=== PATIENT | male | born 1950 | race Caucasian/White ===

== ENCOUNTER → 2019-12-18 | Outpatient (CLI) | payer MEDICARE ==
--- NOTE | 2019-12-18 09:36 | XR ---
EXAMINATION TYPE: XR KUB DATE OF EXAM: 12/18/2019 Comparison: None Clinical History: 69-year-old male N20.1 RLQ pain Findings: Surgical clips left paramedian mid abdomen and left upper quadrant. Multiple pelvic phlebolith. Calcifications in the right mid abdomen measuring 9 mm and 5 mm Nonobstructive bowel gas pattern. Mild degenerative change at the hips. Impression: A 9 mm and 5 mm calcification right mid abdomen likely nonobstructive right renal calculi. Phlebolith s in the pelvis.
== END | disposition home or self-care (01) ==
LOC: RADXRMAIN 09:12
PROVIDERS: ATTEND Urology
DX: I87.8 Other specified disorders of veins (principal); K31.89 Other diseases of stomach and duodenum
CPT/HCPCS: 74018

== ENCOUNTER → 2021-07-26 | Outpatient (CLI) | payer MEDICARE ==
--- NOTE | 2021-07-26 08:24 | XR ---
EXAMINATION TYPE: XR KUB DATE OF EXAM: 07/26/2021 8:15 AM CLINICAL HISTORY: Kidney stones TECHNIQUE: Two supine KUB images of the abdomen are obtained. COMPARISON: Abdominal x-ray December 18, 2019 FINDINGS: Slightly larger approximate 8 mm upper pole right renal calculus . Suspect new 10 mm calcul us distal right ureter over the lower sacrum. Scattered tiny pelvic phleboliths inferior to this rede monstrated bilaterally. Metallic hardware from right hip arthroplasty is now present only partially imaged. Numerous surgical clips left midabdomen redemonstrated. Spurring lower lumbar levels. Overall nonobstructive bowel gas pattern. IMPRESSION: As above.
== END | disposition home or self-care (01) ==
LOC: RADXRMAIN 07:57
PROVIDERS: ATTEND Urology
DX: N20.0 Calculus of kidney (principal)
CPT/HCPCS: 74018

== ENCOUNTER → 2021-08-10 | Outpatient (CLI) | payer MEDICARE ==
--- NOTE | 2021-08-10 09:10 | CT ---
EXAMINATION TYPE: CT abdomen pelvis wo con DATE OF EXAM: 08/10/2021 COMPARISON: No previous CT scan is available for comparison HISTORY: Left kidney stone CT DLP: 1038.60 mGycm Automated exposure control for dose reduction was used. TECHNIQUE: Helical acquisition of images was performed from the lung bases through the pelvis. No IV contrast administration. FINDINGS: A right distal ureteric obstructing stone is seen measuring 9 x 9 mm and located about 15 mm proximal to the right ureterovesical junction. It causes moderate right-sided hydroureter and hydronephrosis with right perinephric and right perinephric fat stranding which could be due to obstruction however associated infection cannot be excluded. Please correlate with urinalysis results. 6 mm nonobstructin g stone is seen at the upper pole of the right kidney. No other definite radiodense renal, ureteric or urinary bladder calculi. No left-sided hydroureter or hydronephrosis. Bilateral renal cysts without gross suspicious feature, incompletely characterized b y this nonenhanced CT scan. The urinary bladder is not completely distended. Slightly bulky prostate with tiny prostatic concretion, please correlate with PSA level. Unremarkable seminal vesicles. Unremarkable unenhanced CT appearance of the liver, gallbladder and adrenals. 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 Suspected 2.6 cm residual splenic tissue. Mild fatty infiltration of the pancreatic head. Unremarkable nondistende d stomach, duodenum and small bowel. Unremarkable colonic anastomosis seen in the left side of the pe lvis. Scattered uncomplicated colonic diverticulosis. Prominent subcentimeter bilateral inguinal lymph nodes. No suspicious abdominal or pelvic lymphadenop athy. No sizable ascites. Large left fat-containing inguinal hernia with smaller right-sided inguinal hernia. Suspected cardiomegaly. Loss of volume of the left lung base with cardiomediastinal shift to the left side. Right total hip arthroplasty. Osteopenia. Degenerative changes of the lower thoracic and lumbar spine. Scattered vertebral body hemangiomas. IMPRESSION: Right distal ureteric obstructing stone measuring up to 9 mm, causing right-sided hydroureter and hyd ronephrosis. Associated infection can't be excluded, please correlate with urinalysis results. 6 mm nonobstructing stone at the upper pole of the right kidney. Further urological consultation can be considered. Other incidental findings as detailed above.
== END | disposition home or self-care (01) ==
LOC: RADCTMAIN 08:29
PROVIDERS: ATTEND Urology
DX: N20.1 Calculus of ureter (principal)
CPT/HCPCS: 74176

== ENCOUNTER → 2021-08-24 | Outpatient (CLI) | payer MEDICARE ==
[2021-08-24 17:58] LABS: Appearance,Urine Clear (Clear); Bilirubin,Urine Negative (Negative); Blood,Urine Negative (Negative); Color,Urine Yellow (Yellow); Ketones,Urine Trace mg/dL (Negative); Leukocyte Esterase,Urine Negative (Negative); Nitrite,Urine Negative (Negative); Protein,Urine Negative (Negative); Specific Gravity,Urine 1.024 (1.001-1.030)
[2021-08-24 18:53] LABS: Basophils # (A) 0.08 X 10*3/uL (0.00-0.10); Eosinophils # (A) 0.35 X 10*3/uL (0.04-0.35); Eosinophils % (A) 4.4 %; HCT 47.7 % (39.6-50.0); Immature Grans, Automated 0.1 %; Lymphocytes # (A) 1.67 X 10*3/uL (0.90-5.00); Lymphocytes % (A) 21.1 %; MCH 29.4 pg (27.0-32.0); MCHC 31.4 g/dL (32.0-37.0); MCV 93.3 fL (80.0-97.0); Mean Platelet Volume 10.7 fL (9.5-12.2); Monocytes % (A) 10.1 %; NRBC Per 100 WBC 0 /100 WBCS (0.0-0.0); Neutrophils % (A) 63.3 %; Platelet Count 343 X 10*3/uL (140-440); RBC 5.11 X 10*6/uL (4.40-5.60); WBC 7.91 X 10*3/uL (4.50-10.00)
[2021-08-25 01:15] LABS: African American GFR (CKD) 103.4 (60.0-200.0); Albumin/Globulin Ratio 1.43 (1.60-3.17); BUN/Creat Ratio 19.13 Ratio (12.00-20.00); Blood Urea Nitrogen 15.3 mg/dL (9.0-27.0); Calcium 9.8 mg/dL (8.7-10.3); Globulin 2.8 g/dL (1.6-3.3); Non-African American GFR(CKD) 89.2 (60.0-200.0); Potassium 4.7 mmol/L (3.5-5.5); Total Bilirubin 0.9 mg/dL (0.30-1.20); Total Protein 6.8 g/dL (6.2-8.2)
== END | disposition home or self-care (01) ==
LOC: LABPAT 08:57
PROVIDERS: ATTEND Urology
DX: Z01.812 Encounter for preprocedural laboratory examination (principal); N20.1 Calculus of ureter
CPT/HCPCS: 80053; 81003; 85025

== ENCOUNTER 2021-08-31 06:59 | Day surgery (SDC) | payer MEDICARE ==
[2021-08-29 10:05] VITALS: BMI 34.0
--- NOTE | 2021-08-30 19:28 | P.GSHP ---
History of Present Illness H&P Date: 08/30/21 71 yomelani presented with gross hematuria. He had a history of stones. He ended up undergoig a ct scan which identified a 9mm distal right ureteral stone with obstrution. Because of the size of the stone and the hydronephrosis he comes for a right ureteroscopy with laser lithotripsy and possible stent. - Constitutional Constitutional: Denies chills, Denies fever - EENT Eyes: denies blurred vision, denies pain Ears, nose, mouth and throat: Denies headache, Denies sore throat - Cardiovascular Cardiovascular: Denies chest pain, Denies shortness of breath - Respiratory Respiratory: Denies cough, Denies 7 - Gastrointestinal Gastrointestinal: Denies abdominal pain, Denies diarrhea, Denies nausea, Denies vomiting - Genitourinary (Female) Genitourinary: Denies dysuria, Denies hematuria - Genitourinary (Male) Genitourinary: Denies dysuria, Denies hematuria - Musculoskeletal Musculoskeletal: Denies myalgias - Integumentary Integumentary: Denies pruritus, Denies rash - Neurological Neurological: Denies numbness, Denies weakness - Psychiatric Psychiatric: Denies anxiety, Denies depression - Endocrine Endocrine: Denies fatigue, Denies weight change Past Medical History Past Medical History: Cancer, Hyperlipidemia, Hypertension, Pulmonary Embolus (PE) Additional Past Medical History / Comment(s): HX LT LUNG CANCER, HODGKIN'S, PROSTATE CANCER. KIDNEY STONES. 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 DATE Smoking Status: Never smoker - Past Family History Father Family Medical History: Cancer Medications and Allergies Home Medications Medication Instructions Recorded Confirmed Type Clopidogrel [Plavix] 75 mg PO DAILY 08/29/21 08/29/21 History Elderberry Fruit and Flower [Black 1 each PO DAILY 08/29/21 08/29/21 History Elderberry 575 mg Cap] Ergocalciferol [Vitamin D2 (1250 1,250 mcg PO MO 08/29/21 08/29/21 History Mcg = 21615 Iu)] Metoprolol Succinate (ER) [Toprol 50 mg PO DAILY 08/29/21 08/29/21 History Xl] Rivaroxaban [Xarelto] 20 mg PO DAILY 08/29/21 08/29/21 History Rosuvastatin [Crestor] 20 mg PO HS 08/29/21 08/29/21 History Tamsulosin [Flomax] 0.4 mg PO HS 08/29/21 08/29/21 History amLODIPine [Norvasc] 5 mg PO DAILY 08/29/21 08/29/21 History Allergies Allergy/AdvReac Type Severity Reaction Status Date / Time No Known Allergies Allergy Verified 08/29/21 09:53 Surgical - Exam - General well developed, well nourished, no distress - Eyes PERRL - ENT no hearing loss - Neck trachea midline - Respiratory normal expansion, normal respiratory effort - Cardiovascular Rhythm: regular - Abdomen Abdomen: soft, non tender - Genitourinary normal penis with no external lesions, testicles present - Integumentary no rash, no growths - Neurologic normal coordination, normal sensation - Musculoskeletal normal gait, normal posture - Psychiatric oriented to time, oriented to person, oriented to place, speech is normal, memory intact Results - Imaging Abdominal x-ray: report reviewed, image reviewed CT scan - abdomen: report reviewed, image reviewed CT scan - pelvis: report reviewed, image reviewed Assessment and Plan Assessment: Impression: Large right ureteral stone with hydronephrosis. Plan: Right ureteroscopy with laser lithotripsy and possible stent.
[~2021-08-31 06:59] MED LIST: DEXAMETHASONE SOD PHOSPHATE 4 MG/ML 1 ML VIAL IV ONE; LACTATED RINGERS 1,000 ML IV SCH; LIDOCAINE 1% (10MG/ML) FOR IV START INTRADERMA PRN; ONDANSETRON 4 MG/2 ML VIAL IVP ONE
[2021-08-31] MEDS ORDERED: HYDROmorphone 0.5 MG/0.5 ML SYRINGE IVP PRN (07:00)
--- NOTE | 2021-08-31 07:45 | XR ---
EXAMINATION TYPE: XR KUB DATE OF EXAM: 08/31/2021 COMPARISON: 07/26/2021 INDICATION: Renal stone TECHNIQUE: Single view abdomen supine view FINDINGS: Nonspecific bowel gas is present through the small bowel loops in left midabdomen as well as colonic bowel gas. Fecal debris is in the ascending colon. Psoas margins are normal. 1.0 cm right renal stone is present. Previous distal ureteral stone has moved into the right hemipelv is IMPRESSION: 1. Movement of the distal right ureteral stone into the right hemipelvis. 2. Right renal stone
[2021-08-31] MEDS ORDERED: fentaNYL (PF) 50 MCG/ML 2 ML AMP ONE (09:00)
[2021-08-31] MEDS ORDERED: PROPOFOL 10 MG/ML 20 ML VIAL IV ONE (09:00)
[2021-08-31] MEDS ORDERED: LIDOCAINE 1% INJ 10MG/ML (20 ML MDV) ONE (09:00)
[2021-08-31] MEDS ORDERED: SUCCINYLCHOLINE CHLORIDE VIAL 200 MG/10 ML VIAL IV ONE (09:00)
[2021-08-31] MEDS ORDERED: PHENYLEPHRINE-0.9% NACL SYG 1,000 MCG/10 ML SYRINGE ONE (09:00)
[2021-08-31] MEDS ORDERED: MIDAZOLAM 2 MG/2 ML VIAL ONE (09:00)
[2021-08-31 10:22] VITALS: TEMP 96.8
--- NOTE | 2021-08-31 10:23 | P.OP ---
Date of Procedure: 08/31/21 Preoperative Diagnosis: Right ureteral stone Postoperative Diagnosis: Urethral stricture, right ureteral stone Procedure(s) Performed: Cystoscopy, dilate urethral stricture, right ureteroscopy laser lithotripsy, placement of 6 x 26 stent, placement of 18-Singaporean Rich Anesthesia: MOE Surgeon: Dax Torres Estimated Blood Loss (ml): 25 Pathology: other (Stone) Condition: stable Disposition: PACU Indications for Procedure: Patient has a 9 mm obstructing distal ureteral stone on the right he comes for ureteroscopy laser lithotripsy Description of Procedure: Patient brought to the operating suite given general anesthesia placed lithotomy position with sterile prep and drape cystoscopy with a 21-Singaporean sheath Foroblique lens identifies a bulbar stricture that requires a wire to intubate but is soft and is dilated easily with the scope. The prostate is 60 and obstructing. The bladder hinojosa trabeculated. The ureteral orifices identified. The right ureter is J-hook due to the obstructing prostate. I passed the wire with some difficulty up the right ureter but meet obstruction of the stone. Over the wires and passed the semirigid scope up to the stone. With the 275 laser probe the stone was broken up into tiny pieces. The larger pieces are basketed. I'm able to advance the scope proximal to the ureteral stone. There is no remaining significant fragments. There is a lot of edema over the stone had an obstructed. An 035 wires and passed through the ureteroscope. I removed the ureteroscope. i backloaded the wire onto the cystoscope. I then reintroduced the cystoscope into the bladder. Over the wires and passed a 6 x 26 double-J catheter that coils in the right renal pelvis and the bladder. Because of the stricture I'll leave the catheter for 48 hours. 18-Singaporean Rich catheters passed in the bladder with pink urine return. The patient tolerated procedure well be discharged home upon recovery and found the office in 48 hours for catheter removal.
--- NOTE | 2021-08-31 10:35 | FL ---
Fluoroscopy INDICATION: Pain FINDINGS: Fluoroscopy time: 33 seconds. Images obtained: 6. IMPRESSIONS: 1. Documentation of fluoroscopy.
[2021-08-31 11:25] VITALS: PULSE 68
[2021-08-31 12:34] VITALS: BP 157/86; RESP 20
== END 2021-08-31 12:25 | disposition home or self-care (01) ==
LOC: OR 06:59
PROVIDERS: ATTEND Urology
DX: N13.2 Hydronephrosis with renal and ureteral calculous obstruction (principal); N35.912 Unspecified bulbous urethral stricture, male; I25.10 Atherosclerotic heart disease of native coronary artery without angina pectoris; I10 Essential (primary) hypertension; E78.5 Hyperlipidemia, unspecified; M19.90 Unspecified osteoarthritis, unspecified site; Z86.711 Personal history of pulmonary embolism; Z85.118 Personal history of other malignant neoplasm of bronchus and lung; Z85.46 Personal history of malignant neoplasm of prostate; Z95.2 Presence of prosthetic heart valve; Z95.5 Presence of coronary angioplasty implant and graft; Z85.71 Personal history of Hodgkin lymphoma; Z90.2 Acquired absence of lung [part of]; Z90.49 Acquired absence of other specified parts of digestive tract; Z98.890 Other specified postprocedural states; Z90.89 Acquired absence of other organs; Z96.653 Presence of artificial knee joint, bilateral; Z96.641 Presence of right artificial hip joint; Z79.02 Long term (current) use of antithrombotics/antiplatelets; Z79.01 Long term (current) use of anticoagulants; Z79.899 Other long term (current) drug therapy
CPT/HCPCS: 82365; 74018; 52356; C2625; C1769; C1758; J2250; J0330; J1100; J0690; J2405; J2001; J3010; J2370; J2704

== ENCOUNTER → 2021-11-11 | Outpatient (CLI) | payer MEDICARE ==
[2021-11-11 13:49] LABS: African American GFR (CKD) >90 (>60 ml/min/1.73 sqM); Blood Urea Nitrogen 19 mg/dL (9-20); Non-African American GFR(CKD) >90 (>60 ml/min/1.73 sqM)
--- NOTE | 2021-11-11 14:30 | CT ---
EXAMINATION TYPE: CT chest w con DATE OF EXAM: 11/11/2021 COMPARISON: NONE HISTORY: Dyspnea. History of non-Hodgkin lymphoma and lung cancer. CT DLP: 471.20 mGycm. Automated Exposure Control for Dose Reduction was Utilized. TECHNIQUE: CT scan of the thorax is performed following with IV Contrast, patient injected with 70 m L of Isovue 300. FINDINGS: LUNGS: There is 2.6 x 1.7 cm focal nodule or nodular consolidation medial right upper lobe axial imag e 15. Some inferior extension with anterior bronchogram is present. There is some surrounding groundg lass opacity extending superiorly. There is left-sided volume loss with scarring and clips abutting t he mediastinum. There is mild left basilar pleural thickening and linear scarring. Small anterior lef t pleural fluid collection or thickening in the upper lung is seen. No pleural effusion or pneumothor ax seen bilaterally. MEDIASTINUM: There are no greater than 1 cm hilar or mediastinal lymph nodes. Left hilar surgical meli nges are present with linear sutures. Stent graft in the aortic root. No cardiomegaly. Small to tiny pericardial effusion. Dense calcification at the level of the mitral valve. Mild coronary artery grace cification. There is 1.3 cm lower right thyroid isthmus nodule axial image 1. Thyroid ultrasound foll ow-up advised if this is not known finding. OTHER: Small degree of bilateral gynecomastia. A few thin-walled cysts are scattered throughout both kidneys. Nonobstructing 5 mm calculus right kidney upper to midpole level coronal image 52. Surgical clips in the midabdomen are partially imaged. Small sized hiatal hernia. Slight scoliotic curvature. IMPRESSION: No suspicious adenopathy. Posttreatment changes to the left lung. There is medial right u pper lung 2.6 x 1.7 cm nodule or nodular consolidation. Correlation with old outside CT and/or PET/CT is advised to further evaluate. If this cannot be performed a PET/CT follow-up would be advised.
== END | disposition home or self-care (01) ==
LOC: RADCTMAIN 13:03
PROVIDERS: ATTEND Internal Medicine Critical Care Medicine
DX: R06.09 Other forms of dyspnea (principal)
CPT/HCPCS: 82565; 84520; 71260; 36415; Q9967

== ENCOUNTER 2021-11-16 10:59 | Day surgery (SDC) | payer MEDICARE ==
[2021-11-14 15:33] VITALS: BMI 33.7
[~2021-11-16 10:59] MED LIST changes: +ALBUTEROL NEB (CONC) 2.5 MG/0.5 ML INHALATION ONE; -DEXAMETHASONE SOD PHOSPHATE 4 MG/ML 1 ML VIAL IV ONE; +LIDOCAINE 2% (PF) 20 MG/ML 5 ML VIAL INHALATION ONE; +LIDOCAINE VISCOUS 300 MG/15 ML CUP MUCOUS MEM ONE; -ONDANSETRON 4 MG/2 ML VIAL IVP ONE
[2021-11-16 11:29] VITALS: RESP 18; TEMP 97.7
[2021-11-16] MEDS: LACTATED RINGERS 1,000 ML IV SCH ×2 (11:53→12:00)
[2021-11-16] MEDS ORDERED: GLYCOPYRROLATE 0.2 MG/ML 2 ML VIAL ONE (12:01)
[2021-11-16] MEDS ORDERED: MIDAZOLAM 2 MG/2 ML VIAL ONE (12:01)
[2021-11-16] MEDS ORDERED: PROPOFOL 10 MG/ML 20 ML VIAL IV ONE (12:01)
[2021-11-16] MEDS ORDERED: KETAMINE 10 MG/ML 20 ML VIAL ONE (12:01)
[2021-11-16] MEDS ORDERED: LIDOCAINE 2% INJ 20 MG/ML INTRATRACH ONE (12:10)
--- NOTE | 2021-11-16 12:45 | P.PCN ---
Date of Procedure: 11/16/21 Preoperative Diagnosis: Dyspnea, history of non-small cell lung cancer with a previous lobectomy Postoperative Diagnosis: Upper airway inspection revealing redundant adipose tissue and collapsibility highly suggestive of obstructive sleep apnea Tracheobronchomalacia Left lower lobectomy Procedure(s) Performed: Flexible bronchoscopy Anesthesia: [facility] Surgeon: Gabriel Boone Pathology: other Condition: stable Disposition: same day Operative Findings: This is a 72-year-old male patient who was referred to me for evaluation of ongoing shortness of breath. The patient's has undergone a previous left lower lobe resection 2018 for an underlying lung cancer. The surgery was done at [facility]. Subsequently, the patient was having surveillance CAT scans and the patient was found to have a right upper lobe opacity with some surrounding groundglass pulmonary changes. The most recent CAT scan of the chest that was done on 11/12/2019 showedThe patient was found to have a right upper lobe 2.6 x 1.7 cm nodule/no other consolidation with surrounding groundglass changes. There was volume loss on the left. There was a 1.2 cm thyroid isthmus nodule. An airway inspection was done as the patient was having nausea breathing and upper airway obstruction was suspected. This procedure was done under conscious sedation. Anesthetic agents was administered by anesthesia the bedside. The patient was given propofol. Immediately after achieving adequate sedation, the flexible bronchoscope was introduced through the right nostril was advanced to the operating room where. Examination of the posterior pharynx was done and the patient was found to have an enlarged uvula and redundant adipose tissue with dynamic collapse of ability of the pharyngeal and laryngeal causing dynamic anatomic obstruction. Epiglottis was identified. Vocal cords were slightly swollen. There had a no rmal function and mobility. The subglottic trachea was essentially within normal limits. There was no evidence of any subglottic stenosis. No evidence of any tracheostenosis. Nevertheless, as the bronchoscope was being advanced distally, the patient was found to have significant degree of tracheal bronchomalacia with collapsibility of airways with examination and coughing. Examination of the right lung was within normal limits. The visualized airways including the right upper lobe bronchus regular lobe bronchus and right lower lobe bronchus right mainstem bronchus and the various segments. Examination of the left showed a normal left main stem bronchus. Stump to the left lower lobe was normal. At the level of the left apical bronchus, there was some endobronchial irregularities. Initially I intended to biopsy these abnormalities. Nevertheless, I was unable to have a good visualization of the irregularity that the patient encounter some endobronchial mucosal bleeding causing haziness and poor visibility. I attended to the one endobronchial biopsies and this was in contact with some bleeding and I aborted the procedure at that point. Plan No evidence of any upper airway obstruction other than dynamic obstruction/tracheobronchomalacia Left lower lobectomy questionable endobronchial irregularities in the left upper lobe bronchus We'll proceed with an outpatient PET scan.
[2021-11-16 14:00] VITALS: BP 119/70; PULSE 75
== END 2021-11-16 13:58 | disposition home or self-care (01) ==
LOC: ORWHC2ENDO 10:59
PROVIDERS: ATTEND Internal Medicine Critical Care Medicine
DX: J40 Bronchitis, not specified as acute or chronic (principal); J98.09 Other diseases of bronchus, not elsewhere classified; Z85.118 Personal history of other malignant neoplasm of bronchus and lung; Z86.711 Personal history of pulmonary embolism; I10 Essential (primary) hypertension; E78.5 Hyperlipidemia, unspecified; Z85.46 Personal history of malignant neoplasm of prostate; Z79.02 Long term (current) use of antithrombotics/antiplatelets; Z79.01 Long term (current) use of anticoagulants; Z79.899 Other long term (current) drug therapy; Z95.2 Presence of prosthetic heart valve
CPT/HCPCS: 88305; 31625; 31624; J2001; J2250; J2704

== ENCOUNTER → 2023-03-21 | Outpatient (CLI) | payer MEDICARE ==
[2023-03-22 02:42] LABS: ALT 29 U/L (10-49); AST 19 U/L (14-35); Albumin 3.9 d/dL (3.8-4.9); Alkaline Phosphatase 98 U/L (41-126); BUN/Creat Ratio 24.86 Ratio (12.00-20.00); Blood Urea Nitrogen 17.4 mg/dL (9.0-27.0); Calcium 10.5 mg/dL (8.7-10.3); Chloride 100 mmol/L (96-109); Glucose 157 mg/dL (70-110); Magnesium 2.2 mg/dL (1.5-2.4); Potassium 4.6 mmol/L (3.5-5.5); Sodium 138 mmol/L (135-145); Total Bilirubin 0.8 mg/dL (0.3-1.2); Total Protein 6.9 d/dL (6.2-8.2)
== END | disposition home or self-care (01) ==
LOC: LABWHC1 14:42
PROVIDERS: ATTEND Internal Medicine
DX: Z85.118 Personal history of other malignant neoplasm of bronchus and lung (principal)
CPT/HCPCS: 36415; 80053; 83735

== ENCOUNTER → 2023-03-23 | Outpatient (CLI) | payer MEDICARE ==
--- NOTE | 2023-03-23 15:56 | MR ---
EXAMINATION TYPE: MR brain wo/w con DATE OF EXAM: 03/23/2023 COMPARISON: None HISTORY: Hx of lung cancer Dx 03-21-23 TECHNIQUE: Multiplanar, multisequence images of the brain and brainstem is performed without and with IV contras t, utilizing 10 mL intravenous Gadavist . FINDINGS: Diffusion weighted images demonstrate no evidence of a recent infarct or other diffusion ab normality. There is no extra-axial fluid collection. Few scattered foci of T2/FLAIR hyperintensity w ithin the periventricular and subcortical white matter bilaterally. The ventricular system and cister nal spaces are normal in size and appearance. The brain volume is age appropriate. Midline structures demonstrate normal morphology. The craniocervical junction appears within normal limits. Post contrast images demonstrate no abnormal enhancement. The dural venous sinuses appear pa tent. The visualized sinuses are clear and the globes are intact. IMPRESSION: 1. No evidence of acute/subacute ischemia or abnormal enhancement to suggest metastasis. 2. Few scattered T2/FLAIR hyperintense foci within the periventricular subcortical white matter likel y representing chronic small vessel ischemic disease.
== END | disposition home or self-care (01) ==
LOC: RADMRIMAIN 13:16
PROVIDERS: ATTEND Radiology Radiation Oncology
DX: C34.11 Malignant neoplasm of upper lobe, right bronchus or lung (principal); G93.89 Other specified disorders of brain
CPT/HCPCS: 70553; A9585

== ENCOUNTER → 2023-04-16 | Outpatient (CLI) | payer MEDICARE ==
[2023-04-16 21:44] LABS: Basophils # (A) 0.07 X 10*3/uL (0.00-0.10); Basophils % (A) 0.7 %; Eosinophils # (A) 0.17 X 10*3/uL (0.04-0.35); Eosinophils % (A) 1.8 %; HCT 48.8 % (39.6-50.0); Lymphocytes # (A) 1.05 X 10*3/uL (0.90-5.00); Lymphocytes % (A) 11.1 %; MCH 30.7 pg (27.0-32.0); MCHC 32.8 d/dL (32.0-37.0); MCV 93.7 FL (80.0-97.0); Mean Platelet Volume 10.3 FL (9.5-12.2); Monocytes # (A) 0.93 X 10*3/uL (0.20-1.00); Monocytes % (A) 9.9 %; NRBC Per 100 WBC 0 X 10*3/uL (0.00-0.01); Neutrophils # (A) 7.16 X 10*3/uL (1.80-7.70); Neutrophils % (A) 75.9 %; Platelet Count 450 X 10*3/uL (140-440); RBC 5.21 X 10*6/uL (4.40-5.60); RDW 15.4 % (11.5-14.5); WBC 9.44 X 10*3/uL (4.50-10.00)
[2023-04-16 22:08] LABS: ALT 21 U/L (10-49); AST 18 U/L (14-35); Albumin/Globulin Ratio 1.54 Ratio (1.60-3.17); Alkaline Phosphatase 124 U/L (41-126); BUN/Creat Ratio 20.71 Ratio (12.00-20.00); Blood Urea Nitrogen 14.5 mg/dL (9.0-27.0); Calcium 10.3 mg/dL (8.7-10.3); Carbon Dioxide 27.9 mmol/L (21.6-31.8); Chloride 101 mmol/L (96-109); Globulin 2.6 d/dL (1.6-3.3); Glucose 128 mg/dL (70-110); Potassium 4.5 mmol/L (3.5-5.5); Sodium 140 mmol/L (135-145); Total Bilirubin 0.8 mg/dL (0.3-1.2); Total Protein 6.6 d/dL (6.2-8.2)
== END | disposition home or self-care (01) ==
LOC: LABWHC1 12:26
PROVIDERS: ATTEND Internal Medicine
DX: Z85.118 Personal history of other malignant neoplasm of bronchus and lung (principal)
CPT/HCPCS: 36415; 80053; 83735; 85025

== ENCOUNTER → 2023-05-07 | Outpatient (CLI) | payer MEDICARE ==
[2023-05-07 16:49] LABS: Basophils # (A) 0.07 X 10*3/uL (0.00-0.10); Basophils % (A) 0.8 %; Eosinophils # (A) 0.35 X 10*3/uL (0.04-0.35); Eosinophils % (A) 3.8 %; HCT 47.4 % (39.6-50.0); HGB 15.6 g/dL (13.0-17.0); Lymphocytes # (A) 0.68 X 10*3/uL (0.90-5.00); Lymphocytes % (A) 7.3 %; MCH 30.8 pg (27.0-32.0); MCHC 32.9 g/dL (32.0-37.0); MCV 93.7 FL (80.0-97.0); Mean Platelet Volume 10.2 FL (9.5-12.2); Monocytes # (A) 0.91 X 10*3/uL (0.20-1.00); Monocytes % (A) 9.8 %; NRBC Per 100 WBC 0 X 10*3/uL (0.00-0.01); Neutrophils # (A) 7.22 X 10*3/uL (1.80-7.70); Neutrophils % (A) 77.5 %; Platelet Count 411 X 10*3/uL (140-440); RBC 5.06 X 10*6/uL (4.40-5.60); RDW 16.1 % (11.5-14.5)
[2023-05-07 16:53] LABS: ALT 19 U/L (10-49); AST 17 U/L (14-35); Alkaline Phosphatase 160 U/L (41-126); BUN/Creat Ratio 22.75 Ratio (12.00-20.00); Blood Urea Nitrogen 18.2 mg/dL (9.0-27.0); Calcium 9.9 mg/dL (8.7-10.3); Carbon Dioxide 24.6 mmol/L (21.6-31.8); Chloride 100 mmol/L (96-109); Globulin 2.5 g/dL (1.6-3.3); Glucose 104 mg/dL (70-110); Magnesium 2.1 mg/dL (1.5-2.4); Potassium 5.3 mmol/L (3.5-5.5); Sodium 138 mmol/L (135-145); Total Bilirubin 0.6 mg/dL (0.3-1.2); Total Protein 6.5 g/dL (6.2-8.2)
== END | disposition home or self-care (01) ==
LOC: LABWHC1 12:01
PROVIDERS: ATTEND Internal Medicine
DX: C34.12 Malignant neoplasm of upper lobe, left bronchus or lung (principal)
CPT/HCPCS: 36415; 80053; 83735; 85025